=== PATIENT | female | born 1955 | race Two or more races ===

== ENCOUNTER 2024-05-21 11:26 | Emergency (ER) | payer MEDICARE ==
[~2024-05-21] VITALS: Ht 152.4 cm; Wt 81.0 kg
[2024-05-21 11:59] VITALS: BP 146/88; PULSE 85; RESP 16; TEMP 97.8; O2SAT 99
[2024-05-21] MEDS ORDERED: PRED20TA2 PO (12:43)
[2024-05-21] MEDS ORDERED: AUG875T PO (12:43)
== END 2024-05-21 13:03 | disposition home or self-care (01) ==
LOC: ER 11:26
DX: H66.93 Otitis media, unspecified, bilateral (principal); Z79.899 Other long term (current) drug therapy